=== PATIENT | male | born 1975 | race Caucasian/White ===

== ENCOUNTER 2016-09-22 11:34 | Emergency (ER) | payer BC ==
[~2016-09-22] VITALS: Ht 175.3 cm; Wt 77.1 kg
--- NOTE | 2016-09-22 11:54 | NUR ---
bib self, cc: right arm and hand /fingers tingling, thumb numbness, started today, no history of neurological disease, symetrical smile, nihss score 0, able to ambulate to bed, a/o x4, equal bilateral strenght in hands, placed in bed, md at bedside upon arrival, will continue to monitor closely.
--- NOTE | 2016-09-22 12:50 | NUR ---
SEEN BY DR BURK. Patient discharged to home in stable condition. Written and verbal after care instructions given. Patient verbalizes understanding of instruction.
[2016-09-22 12:51] VITALS: BP 142/87
== END 2016-09-22 12:52 | disposition home or self-care (01) ==
LOC: ER 11:35
DX: R20.2 Paresthesia of skin (principal); J18.9 Pneumonia, unspecified organism
CPT/HCPCS: 70450; 99284; A4606; Z7610